=== PATIENT | female | born 1950 | race Caucasian/White ===

== ENCOUNTER 2019-11-15 06:21 | Day surgery (SDC) | payer MEDICARE, BC ==
[2019-11-15] VITALS (8 sets, daily range): BP systolic 85–134; BP diastolic 48–96
[~2019-11-15] VITALS: Ht 162.6 cm; Wt 72.5 kg
[~2019-11-15 06:21] MED LIST: ASPI-1264 PO; DILT-35 PO; DILT-94 PO; LOSA50TA64 PO; SIMV40TA PO; cefazolin/dext.iso 2gm/50ml 50 ML IV ONE; famotidine 20mg tablet PO ONE; ringers solution, lacted 1,000 ML IV SCH
[2019-11-15] MEDS ORDERED: ringers solution, lacted 1,000 ML IV SCH (08:14)
[2019-11-15] MEDS ORDERED: ondansetron/PF 4mg/2ml inj IV PRN (08:15)
[2019-11-15] MEDS ORDERED: morphine 4 MG/ML inj SYRINge IV PRN (08:15)
[2019-11-15] MEDS ORDERED: morphine 2 MG/ML inj. syringe IV PRN (08:15)
[2019-11-15] MEDS ORDERED: proCHLORperazine 10 MG/2 ml inj IV PRN (08:15)
[2019-11-15] MEDS ORDERED: meperidine/PF 25mg/ml syringe IV PRN ×3 (08:15)
[2019-11-15 08:17] LABS: BASOPHILS # (AUTO) 0.1 X10'3 (0-0.2); LYMPHOCYTES # (AUTO) 0.7 X10'3 (1.1-4.8); MEAN PLATELET VOLUME 9.7 FL (7.4-10.4); MONOCYTES # (AUTO) 0.5 X10'3 (0-0.9); PRE OP HEMOGLOBIN 14.1 g/dL (12.0-16.0)
[2019-11-15 08:18] LABS: BASOPHILS % (AUTO) 1.5 % (0-1); EOSINOPHILS # (AUTO) 0.2 X10'3 (0-0.9); EOSINOPHILS % (AUTO) 4.3 % (0-6); LYMPHOCYTES % (AUTO) 19.2 % (21-51); MEAN CORPUSCULAR HEMOGLOBIN 30.9 PG (27.0-31.0); MEAN CORPUSCULAR HGB CONC 34.7 g/dL (33.0-36.5); MEAN CORPUSCULAR VOLUME 88.8 FL (78-98); MONOCYTES % (AUTO) 13.2 % (2-12); NEUTROPHILS # (AUTO) 2.3 X10'3 (1.8-7.7); NEUTROPHILS % (AUTO) 61.8 % (42-75); PRE OP HEMATOCRIT 40.6 % (35.0-45.0); PRE OP PLATELET COUNT 238 X10'3 (140-440); RED BLOOD COUNT 4.57 X10'6 (4.20-5.60); RED CELL DISTRIBUTION WIDTH 13.1 % (11.5-14.5)
[2019-11-15 08:41] LABS: ALBUMIN 4.2 G/DL (3.4-5.0); ALBUMIN/GLOBULIN RATIO 1.1 (1.1-1.5); ALKALINE PHOSPHATASE 44 IU/L (46-116); BLOOD UREA NITROGEN 11 MG/DL (7-18); BUN/CREATININE RATIO 16.7 (6.6-38.0); CHLORIDE 105 MMOL/L (99-107); CREATININE 0.66 MG/DL (0.40-0.90); PRE OP ALT 31 U/L (30-65); PRE OP ANION GAP 10 (8-16); PRE OP AST 21 U/L (10-37); PRE OP BILIRUB, TOTAL 0.6 MG/DL (0.0-1.0); PRE OP GLUCOSE 99 MG/DL (70-104); PRE OP POTASSIUM 3.7 MMOL/L (3.4-5.1); PRE OP SODIUM 141 MMOL/L (135-145); TOTAL CARBON DIOXIDE 25.7 MMOL/L (24-32); eGFR 89 ML/MIN
[2019-11-15] MEDS ORDERED: sevoflurane 250ml liquid IH ONE (10:02)
[2019-11-15] MEDS ORDERED: fentaNYL/PF 50MCG/1 ML 2ML syringe ONE (10:05)
[2019-11-15] MEDS ORDERED: midazolam 2 mg/2 ml injection ONE (10:06)
[2019-11-15] MEDS ORDERED: propofol inj 20 ML IV ONE (10:08)
[2019-11-15] MEDS ORDERED: BUPIVAcaine/PF 2.5mg/ml (0.25%) 10ml vial ONE (10:19)
--- NOTE | 2019-11-15 10:55 | NUR ---
Received from OR via BED, accompanied by Anesthesiologist DR PERSAUD--- and report given by Anesthesiolgist. PATIENT A&OX4, DENIES PAIN, V/S WNL, NEUROVASCULAR CHECKS INTACT, 20G PIV LUE, SCD ON, STERI STRIPS TO RIGHT NECK CDI.
--- NOTE | 2019-11-15 11:45 | NUR ---
Received from OR via BED, accompanied by Anesthesiologist DR PERSAUD--- and report given by Anesthesiolgist. PATIENT A&OX4, DENIES PAIN, V/S WNL, NEUROVASCULAR CHECKS INTACT, 20G XOCHITL WALKER, SCD ON, STERI STRIPS TO RIGHT NECK CDI. Addendum: 11/15/19 at 1153 by Juvenal Duncan RN WRONG TIME
--- NOTE | 2019-11-15 11:45 | NUR ---
PATIENT A&OX4, DENIES PAIN, V/S WNL, NEUROVASCULAR CHECKS INTACT, 20G PIV LUE, SCD ON, STERI STRIPS TO RIGHT NECK CDI. I HAVE REVIEWED D/C INSTRUCTIONS WITH PATIENT AND FAMILY AND THEY HAVE VERBALIZED UNDERSTANDING. PATIENT D/C HOME WITH ALL BELONGINGS AND FAMILY GAVE TRANSPORT HOME
== END 2019-11-15 11:45 | disposition home or self-care (01) ==
LOC: PAS 06:21
PROVIDERS: ATTEND Surgery
DX: R59.1 Generalized enlarged lymph nodes (principal); F41.9 Anxiety disorder, unspecified; I10 Essential (primary) hypertension; Z79.82 Long term (current) use of aspirin; Z79.899 Other long term (current) drug therapy; Z82.5 Family history of asthma and other chronic lower respiratory diseases
CPT/HCPCS: 36415; 38500; 80053; 85025; 93005; J2250; J2704; J3010; J3490; J7120; A4215; A4618; A7000